=== PATIENT | female | born 1960 | race Caucasian/White ===

== ENCOUNTER 2023-05-12 01:52 | Outpatient (RCR) | payer BC, SELFPAY ==
[2023-04-14] MEDS: Normal Saline Flush 10 ML SYR IVP (09:33)
[2023-04-14 10:16] LABS: Abs Immature Grans 0.01 10^3/uL (0.0-0.06); Absolute Basophil Count 0.04 10^3/uL (0.0-0.2); Absolute Eosinophil Count 0.35 10^3/uL (0.0-0.7); Absolute Lymphocyte Count 1.09 10^3/uL (1.2-3.4); Absolute Monocyte Count 0.45 10^3/uL (0.1-0.8); Absolute Neutrophil Count 3.89 10^3/uL (1.2-6.7); Basophils % 0.7; HCT 33.1 % (36.0-46.0); HGB 10.6 g/dL (11.2-15.7); Immature Grans % 0.2; Lymphocytes % 18.7; MCH 29.6 pg (27.0-33.0); MCV 93 fL (80-95); MPV 9.3 fL (8.0-11.0); Monocytes % 7.7; Neutrophils % 66.7; Platelet Count 336 10^3/uL (130-400); RBC 3.58 10^6/uL (3.93-5.22); RDW 13.1 % (11.7-14.6); RDW-SD 44.6 fL; WBC 5.83 10^3/uL (4.4-10.8)
[2023-04-14 10:32] LABS: ALT 29 U/L (14-59); AST 29 U/L (15-37); Albumin 3.6 g/dL (3.4-5.0); Alkaline Phosphatase 100 U/L (46-116); Anion Gap 7.1 mmol/L (3-11); BUN 27 mg/dL (7-18); Bilirubin, Total 0.2 mg/dL (0.2-1.0); CO2 30.9 mmol/L (21.0-32.0); CREATININE 0.8 mg/dL (0.55-1.02); Calcium 8.7 mg/dL (8.5-10.1); Chloride 104 mmol/L (98-107); Estimated GFR 82.23 (mL/min/1.73m2); Glucose 109 mg/dL (74-106); Magnesium 1.9 mg/dL (1.8-2.4); Sodium 142 mmol/L (136-145); Total Protein 7.2 g/dL (6.4-8.2)
[2023-04-21] MEDS: Normal Saline Flush 10 ML SYR IVP (12:22)
[2023-04-21 12:40] LABS: Abs Immature Grans 0.03 10^3/uL (0.0-0.06); Absolute Basophil Count 0.04 10^3/uL (0.0-0.2); Absolute Eosinophil Count 0.22 10^3/uL (0.0-0.7); Absolute Lymphocyte Count 1.07 10^3/uL (1.2-3.4); Absolute Monocyte Count 0.52 10^3/uL (0.1-0.8); Absolute Neutrophil Count 4.75 10^3/uL (1.2-6.7); Basophils % 0.6; Eosinophils % 3.3; HCT 31.8 % (36.0-46.0); HGB 10.3 g/dL (11.2-15.7); Immature Grans % 0.5; Lymphocytes % 16.1; MCH 29.7 pg (27.0-33.0); MCHC 32.4 % (32.0-36.0); MCV 92 fL (80-95); MPV 9.1 fL (8.0-11.0); Monocytes % 7.8; Neutrophils % 71.7; Platelet Count 298 10^3/uL (130-400); RBC 3.47 10^6/uL (3.93-5.22); RDW-SD 43.5 fL; WBC 6.63 10^3/uL (4.4-10.8)
[2023-04-21 13:13] LABS: ALT 42 U/L (14-59); AST 38 U/L (15-37); Albumin 3.9 g/dL (3.4-5.0); Alkaline Phosphatase 88 U/L (46-116); Anion Gap 8.9 mmol/L (3-11); BUN 23 mg/dL (7-18); Bilirubin, Total 0.2 mg/dL (0.2-1.0); CO2 28.1 mmol/L (21.0-32.0); Calcium 8.8 mg/dL (8.5-10.1); Chloride 101 mmol/L (98-107); Estimated GFR 62.91 (mL/min/1.73m2); Glucose 100 mg/dL (74-106); Magnesium 1.7 mg/dL (1.8-2.4); Sodium 138 mmol/L (136-145); Total Protein 7.2 g/dL (6.4-8.2)
[2023-04-28] MEDS: Normal Saline Flush 10 ML SYR IVP (12:01)
[2023-04-28 12:09] LABS: Abs Immature Grans 0.02 10^3/uL (0.0-0.06); Absolute Basophil Count 0.04 10^3/uL (0.0-0.2); Absolute Eosinophil Count 0.11 10^3/uL (0.0-0.7); Absolute Lymphocyte Count 0.86 10^3/uL (1.2-3.4); Absolute Monocyte Count 0.49 10^3/uL (0.1-0.8); Absolute Neutrophil Count 4.53 10^3/uL (1.2-6.7); Basophils % 0.7; Eosinophils % 1.8; HCT 30.5 % (36.0-46.0); Immature Grans % 0.3; Lymphocytes % 14.2; MCH 30.2 pg (27.0-33.0); MCHC 32.8 % (32.0-36.0); MCV 92 fL (80-95); MPV 9.1 fL (8.0-11.0); Monocytes % 8.1; Neutrophils % 74.9; Platelet Count 288 10^3/uL (130-400); RBC 3.31 10^6/uL (3.93-5.22); RDW 13.1 % (11.7-14.6); RDW-SD 43.9 fL; WBC 6.05 10^3/uL (4.4-10.8)
[2023-04-28 12:44] LABS: ALT 30 U/L (14-59); AST 25 U/L (15-37); Albumin 3.6 g/dL (3.4-5.0); Alkaline Phosphatase 88 U/L (46-116); Anion Gap 6.3 mmol/L (3-11); BUN 24 mg/dL (7-18); Bilirubin, Total 0.2 mg/dL (0.2-1.0); CO2 29.7 mmol/L (21.0-32.0); CREATININE 1.1 mg/dL (0.55-1.02); Calcium 8.5 mg/dL (8.5-10.1); Chloride 103 mmol/L (98-107); Estimated GFR 56.11 (mL/min/1.73m2); Glucose 98 mg/dL (74-106); Magnesium 1.5 mg/dL (1.8-2.4); Potassium 4.1 mmol/L (3.5-5.1); Sodium 139 mmol/L (136-145); Total Protein 6.8 g/dL (6.4-8.2)
[2023-05-05 13:14] LABS: Abs Immature Grans 0.02 10^3/uL (0.0-0.06); Absolute Basophil Count 0.03 10^3/uL (0.0-0.2); Absolute Eosinophil Count 0.06 10^3/uL (0.0-0.7); Absolute Lymphocyte Count 0.59 10^3/uL (1.2-3.4); Absolute Monocyte Count 0.43 10^3/uL (0.1-0.8); Absolute Neutrophil Count 5.57 10^3/uL (1.2-6.7); Basophils % 0.4; Eosinophils % 0.9; HCT 29.7 % (36.0-46.0); HGB 9.7 g/dL (11.2-15.7); Immature Grans % 0.3; Lymphocytes % 8.8; MCH 29.7 pg (27.0-33.0); MCHC 32.7 % (32.0-36.0); MCV 91 fL (80-95); Monocytes % 6.4; Neutrophils % 83.2; Platelet Count 275 10^3/uL (130-400); RBC 3.27 10^6/uL (3.93-5.22); RDW 13.2 % (11.7-14.6); RDW-SD 43.5 fL
[2023-05-05 13:28] LABS: ALT 26 U/L (14-59); AST 21 U/L (15-37); Albumin 3.7 g/dL (3.4-5.0); Alkaline Phosphatase 90 U/L (46-116); Anion Gap 7.5 mmol/L (3-11); BUN 20 mg/dL (7-18); Bilirubin, Total 0.2 mg/dL (0.2-1.0); CO2 29.5 mmol/L (21.0-32.0); Calcium 8.5 mg/dL (8.5-10.1); Chloride 100 mmol/L (98-107); Estimated GFR 62.91 (mL/min/1.73m2); Glucose 87 mg/dL (74-106); Magnesium 1.6 mg/dL (1.8-2.4); Potassium 4.1 mmol/L (3.5-5.1); Sodium 137 mmol/L (136-145)
[2023-05-05] MEDS: Normal Saline Flush 10 ML SYR IVP (13:51)
[2023-05-12] MEDS: Normal Saline Flush 10 ML SYR IVP (12:47)
[2023-05-12 12:57] LABS: Abs Immature Grans 0.03 10^3/uL (0.0-0.06); Absolute Basophil Count 0.03 10^3/uL (0.0-0.2); Absolute Eosinophil Count 0.03 10^3/uL (0.0-0.7); Absolute Lymphocyte Count 0.38 10^3/uL (1.2-3.4); Absolute Monocyte Count 0.45 10^3/uL (0.1-0.8); Absolute Neutrophil Count 5.89 10^3/uL (1.2-6.7); Basophils % 0.4; Eosinophils % 0.4; HCT 30.4 % (36.0-46.0); Immature Grans % 0.4; Lymphocytes % 5.6; MCH 29.8 pg (27.0-33.0); MCHC 32.9 % (32.0-36.0); MCV 91 fL (80-95); MPV 8.6 fL (8.0-11.0); Monocytes % 6.6; Neutrophils % 86.6; Platelet Count 210 10^3/uL (130-400); RBC 3.36 10^6/uL (3.93-5.22); RDW 13.2 % (11.7-14.6); RDW-SD 43.2 fL; WBC 6.81 10^3/uL (4.4-10.8)
[2023-05-12 13:52] LABS: ALT 19 U/L (14-59); AST 19 U/L (15-37); Albumin 3.7 g/dL (3.4-5.0); Alkaline Phosphatase 89 U/L (46-116); Anion Gap 9.9 mmol/L (3-11); BUN 25 mg/dL (7-18); Bilirubin, Total 0.3 mg/dL (0.2-1.0); CO2 29.1 mmol/L (21.0-32.0); CREATININE 1.4 mg/dL (0.55-1.02); Calcium 8.6 mg/dL (8.5-10.1); Chloride 94 mmol/L (98-107); Estimated GFR 42.01 (mL/min/1.73m2); Glucose 134 mg/dL (74-106); Magnesium 1.7 mg/dL (1.8-2.4); Potassium 3.9 mmol/L (3.5-5.1); Sodium 133 mmol/L (136-145); Total Protein 7.2 g/dL (6.4-8.2)
== END 2023-05-12 23:59 | disposition home or self-care (01) ==
LOC: INF 01:52
PROVIDERS: Visit Provider Internal Medicine Hematology & Oncology
DX: C32.9 Malignant neoplasm of larynx, unspecified (principal); Z45.2 Encounter for adjustment and management of vascular access device
CPT/HCPCS: 36415; 36591; 80053; 96523; 83735; 85025

== ENCOUNTER 2023-06-09 02:07 | Outpatient (RCR) | payer BC, SELFPAY ==
[2023-05-19 11:57] LABS: Abs Immature Grans 0.03 10^3/uL (0.0-0.06); Absolute Basophil Count 0.01 10^3/uL (0.0-0.2); Absolute Eosinophil Count 0.02 10^3/uL (0.0-0.7); Absolute Lymphocyte Count 0.28 10^3/uL (1.2-3.4); Absolute Monocyte Count 0.36 10^3/uL (0.1-0.8); Absolute Neutrophil Count 4.61 10^3/uL (1.2-6.7); Basophils % 0.2; Eosinophils % 0.4; HCT 26.3 % (36.0-46.0); HGB 8.8 g/dL (11.2-15.7); Immature Grans % 0.6; Lymphocytes % 5.3; MCH 30.3 pg (27.0-33.0); MCHC 33.5 % (32.0-36.0); MCV 91 fL (80-95); MPV 8.6 fL (8.0-11.0); Monocytes % 6.8; Neutrophils % 86.7; Platelet Count 179 10^3/uL (130-400); RDW 13.6 % (11.7-14.6); RDW-SD 44.5 fL; WBC 5.31 10^3/uL (4.4-10.8)
[2023-05-19 12:13] LABS: ALT 14 U/L (14-59); AST 16 U/L (15-37); Albumin 3.4 g/dL (3.4-5.0); Alkaline Phosphatase 88 U/L (46-116); Anion Gap 7.2 mmol/L (3-11); BUN 28 mg/dL (7-18); Bilirubin, Total 0.2 mg/dL (0.2-1.0); CO2 30.8 mmol/L (21.0-32.0); CREATININE 1.2 mg/dL (0.55-1.02); Calcium 8.7 mg/dL (8.5-10.1); Chloride 95 mmol/L (98-107); Estimated GFR 50.55 (mL/min/1.73m2); Glucose 131 mg/dL (74-106); Magnesium 1.3 mg/dL (1.8-2.4); Sodium 133 mmol/L (136-145); Total Protein 6.8 g/dL (6.4-8.2)
[2023-05-19] MEDS: Heparin 500 UNITS/5 ML SYRINGE IV (14:37)
[2023-05-19] MEDS: Normal Saline Flush 10 ML SYR IVP (14:37)
[2023-05-26 09:51] LABS: Abs Immature Grans 0.01 10^3/uL (0.0-0.06); Absolute Basophil Count 0.02 10^3/uL (0.0-0.2); Absolute Eosinophil Count 0.01 10^3/uL (0.0-0.7); Absolute Lymphocyte Count 0.25 10^3/uL (1.2-3.4); Absolute Monocyte Count 0.34 10^3/uL (0.1-0.8); Absolute Neutrophil Count 2.64 10^3/uL (1.2-6.7); Basophils % 0.6; Eosinophils % 0.3; HGB 8.7 g/dL (11.2-15.7); Immature Grans % 0.3; Lymphocytes % 7.6; MCH 30.7 pg (27.0-33.0); MCHC 33.5 % (32.0-36.0); MCV 92 fL (80-95); Monocytes % 10.4; Neutrophils % 80.8; Platelet Count 208 10^3/uL (130-400); RBC 2.83 10^6/uL (3.93-5.22); RDW 14.3 % (11.7-14.6); RDW-SD 45.8 fL; WBC 3.27 10^3/uL (4.4-10.8)
[2023-05-26] MEDS: Normal Saline Flush 10 ML SYR IVP (09:58)
[2023-05-26] MEDS: Heparin 500 UNITS/5 ML SYRINGE IV (09:58)
[2023-05-26 10:29] LABS: ALT 13 U/L (14-59); AST 17 U/L (15-37); Albumin 3.3 g/dL (3.4-5.0); Alkaline Phosphatase 87 U/L (46-116); BUN 25 mg/dL (7-18); Bilirubin, Total 0.3 mg/dL (0.2-1.0); CREATININE 1.3 mg/dL (0.55-1.02); Calcium 8.9 mg/dL (8.5-10.1); Chloride 98 mmol/L (98-107); Estimated GFR 45.92 (mL/min/1.73m2); Glucose 101 mg/dL (74-106); Magnesium 1.7 mg/dL (1.8-2.4); Potassium 3.9 mmol/L (3.5-5.1); Sodium 135 mmol/L (136-145)
[2023-06-09] MEDS: Heparin 500 UNITS/5 ML SYRINGE IV (11:20)
[2023-06-09] MEDS: Normal Saline Flush 10 ML SYR IVP (11:20)
[2023-06-09 11:40] LABS: Abs Immature Grans 0.01 10^3/uL (0.0-0.06); Absolute Basophil Count 0.02 10^3/uL (0.0-0.2); Absolute Eosinophil Count 0.01 10^3/uL (0.0-0.7); Absolute Lymphocyte Count 0.29 10^3/uL (1.2-3.4); Absolute Monocyte Count 0.33 10^3/uL (0.1-0.8); Absolute Neutrophil Count 2.75 10^3/uL (1.2-6.7); Basophils % 0.6; Eosinophils % 0.3; HGB 8.7 g/dL (11.2-15.7); Immature Grans % 0.3; Lymphocytes % 8.5; MCH 31.6 pg (27.0-33.0); MCHC 33.5 % (32.0-36.0); MCV 95 fL (80-95); MPV 8.9 fL (8.0-11.0); Monocytes % 9.7; Neutrophils % 80.6; Platelet Count 260 10^3/uL (130-400); RBC 2.75 10^6/uL (3.93-5.22); RDW 16.3 % (11.7-14.6); RDW-SD 54.5 fL; WBC 3.41 10^3/uL (4.4-10.8)
[2023-06-09 11:59] LABS: ALT 16 U/L (14-59); AST 18 U/L (15-37); Albumin 3.5 g/dL (3.4-5.0); Alkaline Phosphatase 89 U/L (46-116); Anion Gap 5.8 mmol/L (3-11); BUN 38 mg/dL (7-18); Bilirubin, Total 0.4 mg/dL (0.2-1.0); CO2 32.2 mmol/L (21.0-32.0); CREATININE 1.5 mg/dL (0.55-1.02); Chloride 99 mmol/L (98-107); Estimated GFR 38.67 (mL/min/1.73m2); Glucose 91 mg/dL (74-106); Sodium 137 mmol/L (136-145)
== END 2023-06-12 23:59 | disposition home or self-care (01) ==
LOC: INF 02:07
PROVIDERS: Visit Provider Internal Medicine Hematology & Oncology
DX: C32.9 Malignant neoplasm of larynx, unspecified (principal); Z45.2 Encounter for adjustment and management of vascular access device
CPT/HCPCS: 36591; 80053; 83735; 85025

== ENCOUNTER → 2023-07-30 03:25 | Outpatient (CLI) | payer BC, SELFPAY ==
--- NOTE | 2023-07-30 | DI.RAD_ITS ---
Exam(s) RF MODIFIED SPEECH BA SWALLOW TECHNIQUE: Modified barium swallow was performed in conjunction with speech pathology. CONTRAST MATERIAL: Oral barium Oral water soluble contrast was administered. COMPARISON: No exams were available for comparison FINDINGS: Note that this is not a dedicated esophagram, distal esophagus not evaluated. There is no evidence of aspiration or penetration of thin liquids, barium pudding and barium coated c ookie. Speech pathology report to follow. IMPRESSION: No evidence of aspiration or penetration. RADIATION DOSE DELIVERED: esther Sosa=8.79 mGy
[2023-07-30] MEDS: Barium Sulfate Oral Paste 40% W/V 230 ML TUBE 60 ML PO (15:15)
[2023-07-30] MEDS: Barium Sulfate 81% w/w for Oral Suspension 148 GM BTL 90 GM PO (15:18)
[2023-07-30] MEDS: Barium Sulfate 40% W/V 240 ML BTL 60 ML PO (15:20)
--- NOTE | 2023-07-30 15:41 | ST.MBS ---
Date of Service Date of service: 07/30/23 Time of Service: 15:41 Modified Barium Swallow Study Findings: Videofluoroscopic Swallowing Evaluation / Modified Barium Swallow Study (VFSE/MBSS) Speech Language Pathology Report Patient referred for MBSS from Dr Valencia given recent completion of chemo & radiation therapy with feeding tube use and presence of tracheostomy. 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 A protective tracheostomy was placed prior to treatment as a precaution, which remains in place at this time. She currently tolerates a capped trach. She has not been using her tube feed for nutrition or hydration and has reportedly tolerated a soft solid and thin liquid diet in recent weeks without s/sx aspiration. SUBJECTIVE: Yanci tolerates a soft solids diet (fully edentulous) at this time without complaint. She denies sensation of residue, or s/sx aspiration. OBJECTIVE: Videofluoroscopic Swallow Evaluation (VFSE/MBSS) was conducted in the lateral projection by Speech-Language Pathologist, in collaboration with Radiologist, to evaluate oropharyngeal swallow function. Anatomic view under fluoroscopy: Presence of tracheostomy tube PO barium contrast trials: Oral barium water soluble contrast was administered as follows: IDDSI Level 0 Varibar thin liquid (40% w/v) IDDSI Level 4 Varibar pudding/pureed/extremely thick (40% w/v) IDDSI Level 7 Regular Solid: 1/2 cortez cracker coated in 3 mL Varibar pudding; 13 mm barium tablet taken with Level 0 Varibar thin liquid. PHYSIOLOGIC FINDINGS Oral Phase 1 Lip Closure: 1-Interlabial escape; no progression to anterior lip 2 Tongue Control: 0- Cohesive bolus between tongue to palatal seal 3 Bolus Preparation/Mastication: 2- Disorganized chewing/mashing with solid pieces of bolus unchewed 4 Bolus Transport/Lingual Motion: 0- Brisk tongue motion 5 Oral residue: 1- Trace residue lining oral structures Location: tongue 6 Initiation of pharyngeal swallow:? 2- Bolus head at posterior laryngeal surface of epiglottis Pharyngeal Phase 7 Velar Elevation: 0- No bolus between soft palate and pharyngeal wall 8 Laryngeal Elevation:? 1- Partial superior movement of thyroid cartilage with partial approximation of arytenoids to epiglottic petiole 9 Anterior Hyoid Excursion: 0- Complete anterior movement 10 Epiglottic Movement:? 0- Complete inversion 11 Laryngeal Vestibule Closure: 0- Complete; no air/contrast in laryngeal vestibule Penetration occurs prior to initial swallow onset from current bolus. 12 Pharyngeal Stripping Wave:? 0- Present; complete 13 Pharyngeal Contraction: DNT; lack of AP view 14 PES/UES Opening:? 1- Partial distension and partial duration; partial obstruction of flow noting mild cricopharyngeal hypertrophy but without obstruction, no pyriform residue. 15 Tongue Base Retraction: 1- Trace column of contrast between tongue base and posterior pharyngeal wall 16 Pharyngeal residue:? 1- Trace residue within or on pharyngeal structures Location: Tongue base, Valleculae [place] Pharyngeal Residue Severity Rating Scale (YPRS) (Shelby, et al, 2015) Vallecula Residue Severity II Trace 1-5% Trace coating of the mucosa Pyriform Sinus Residue Severity I None 0% No residue Esophageal Phase 17 Esophageal Clearance Upright Position: DNT; lack of AP view NOTE: This study was performed for interpretation only of the oropharyngeal and pharyngoesophageal domains of swallowing. It is not intended to diagnose any other radiologic abnormalities or substitute for a formal esophagram study. Overall 8-Point Penetration-Aspiration Scale (PAS) (Brucek, et al, 1996) 1 - No material enters the airway. (puree, solid trials) 2 - Material enters the airway, remains above the vocal folds, and is ejected? from the airway. (thin liquid trials) Clinical Indicator(s) of Prandial/Postprandial Aspiration: N/A - no aspiration DIGEST Scale Rating (O'Cuco, et al, 1999) DIGEST Score: Safety Grade 0 / Efficiency Grade 0 = 0 - Overall WFL Pharyngeal Function (0=No Impairment, 1=Mild, 2=Moderate, 3=Severe, 4=Life Threatening) The Dynamic Imaging Grade of Swallowing Toxicity (DIGEST) Score represents a set of structured criteria primarily validated for head and neck cancer patients to grade the interaction of safety, efficiency, and overall impairment of the pharyngeal swallow, meant to assist in prioritization of targets for dysphagia treatment planning. (Yang, et al. Cancer. 2017;123(1):62-70) Note: - Above score represents swallowing events without application of compensatory techniques Trialed Compensatory Swallow Strategies & Outcome: Bolus Modifications -Delivery/Alternating Consistencies - Wash with thin liquid successful to resolve barium tablet stasis in distal esophagus Dysphagia Outcome and Severity Scale (ADAIR) LEVEL 6 - Full PO: normal diet - Within functional limits/modified independence IMPRESSIONS: WFL pharyngeal phase even with presence of tracheostomy - oral phase impairments appear to be primarily due to edentulousness (teeth all pulled prior to radiation). Swallow safety is preserved; swallow efficiency is preserved. Patient anatomy appears consistent with mild CP hypertrophy (asymptomatic), and noting stasis in distal esophagus of 13mm barium tablet, resolves with liquid wash. Patient appears to be at low risk for potential aspiration PNA, pulmonary compromise and low for malnutrition, low for dehydration. Diet modification is indicated only due to edentulousness. Swallow prognosis is good given high level off function, and given expectation that swallow function may improve after tracheostomy tube is removed. Remains at risk for late effects of radiation fibrosis. PLAN: Encouraged patient to continue with pharyngocise HEP. No further [employer] REPAIR IN[employer]CTOR services needed at this time, patient may seek [employer] REPAIR INSTRUCTOR referral in the future if function changes. Diet recommendation: IDDSI Level 6-Soft & Bite-Sized Solids 0-Thin Liquids Please see further details at [email or web address] Diet texture modification is per patient's preference; please adjust diet textures at patient's discretion & collaboration with care team. Risk Management: Behavioral reflux precautions, including upright position during + 90 mins after meals. Small sips, approx 10 mL Alternate solids/liquids as able Control risk factors for aspiration pneumonia via (a) thorough oral hygiene & (b) maintaining physical mobility as tolerated Follow-up exam: PRN only Thank you for allowing me to take part in this patient's care. Please feel free to contact me with any questions/concerns. Jenny Ferrara MS, [facility]-[employer] REPAIR INSTRUCTOR Speech Language Pathologist [phone] Coding CPT Codes MOTION FLUOROSCOPY/SWALLOW - [id number] ([id number])
== END ==
PROVIDERS: Visit Provider Internal Medicine Hematology & Oncology
DX: Z93.0 Tracheostomy status (principal)
CPT/HCPCS: 92526; 92611; 74221

== ENCOUNTER → 2024-04-13 02:15 | Outpatient (CLI) | payer MEDICARE, SELFPAY ==
--- OUTSIDE RECORDS SUMMARY | 2024-04-13 02:17 | XMS_ITS | Patient Health Record ---
Author Name Unknown Organization [facility] Corporate Address [address] [place] [address] Care Team Providers Care Director Of Mobile Marketing Name Role Phone KAROLYN WHITE Unavailable [phone] Reason For Referral No Information Encounters Encounter Location Date Provider Diagnosis [facility] located [facility] [address] [place] [address] 11/24/2023 KAROLYN WHITE Other specified counseling Z71.89 and Neoplasm of uncertain behavior of skin D48.5 Assessments Encounter Date Diagnosis (ICD Code) Assessment Notes Treatment Notes Treatment Clinical Notes 11/24/2023 Other specified counseling (ICD-10 - Z71.89) 11/24/2023 Neoplasm of uncertain behavior of skin (ICD-10 - D48.5) Plan Of Treatment No Information Insurance Providers Payer Name Payer Address Payer Phone Subscriber Number Group Number Insured Name Patient Relationship to Insured Coverage Start Date Coverage End Date [facility] [address] [place] [address] [id number] Yanci Ratliff Self - patient is the insured
[2024-04-13 13:54] LABS: Abs Immature Grans 0.01 10^3/uL (0.0-0.06); Absolute Basophil Count 0.01 10^3/uL (0.0-0.2); Absolute Eosinophil Count 0.01 10^3/uL (0.0-0.7); Absolute Lymphocyte Count 0.48 10^3/uL (1.2-3.4); Absolute Monocyte Count 0.34 10^3/uL (0.1-0.8); Absolute Neutrophil Count 3.01 10^3/uL (1.2-6.7); Basophils % 0.3 %; Eosinophils % 0.3 %; HGB 9.8 g/dL (11.2-15.7); Immature Grans % 0.3 %; Lymphocytes % 12.4 %; MCH 28.2 pg (27.0-33.0); MCHC 31.6 % (32.0-36.0); MCV 89 fL (80-95); MPV 8.1 fL (8.0-11.0); Monocytes % 8.8 %; Neutrophils % 77.9 %; Platelet Count 313 10^3/uL (130-400); RBC 3.47 10^6/uL (3.93-5.22); RDW 14.2 % (11.7-14.6); RDW-SD 46.5 fL; WBC 3.86 10^3/uL (4.4-10.8)
[2024-04-13 14:18] LABS: ALT 21 U/L (14-59); AST 25 U/L (15-37); Albumin 3.5 g/dL (3.4-5.0); Alkaline Phosphatase 91 U/L (46-116); Anion Gap 8.3 mmol/L (3-11); BUN 16 mg/dL (7-18); Bilirubin, Total 0.14 mg/dL (0.2-1.0); CO2 30.7 mmol/L (21.0-32.0); CREATININE 1.3 mg/dL (0.55-1.02); Calcium 9.1 mg/dL (8.5-10.1); Chloride 101 mmol/L (98-107); Estimated GFR 45.63 (mL/min/1.73m2); Glucose 115 mg/dL (74-106); Potassium 3.9 mmol/L (3.5-5.1); Sodium 140 mmol/L (136-145); Total Protein 7.9 g/dL (6.4-8.2)
[2024-04-13] MEDS: Normal Saline - Diluent 50 ML VIAL IJ (14:43)
[2024-04-13] MEDS: Omnipaque 350 MG/ML 100 ML BTL IJ (14:44)
[2024-04-13] MEDS: Normal Saline Flush 10 ML SYR IVP (14:46)
--- NOTE | 2024-04-13 15:03 | DI.CT_ITS ---
Exam(s) CT NECK W EXAM: CT NECK W CLINICAL HISTORY: S/P RADIOTHERAPY Z92.3 LARYNGEAL CANCER, FULLNESS SWALLOWING DIFFICULT. TECHNIQUE: Imaging Protocol: Axial computed tomography images with coronal and sagittal reformatted images were created and reviewed. CONTRAST MATERIAL: Intravenous: Omnipaque 350 Contrast volume:100mL COMPARISON: No exams were available for comparison FINDINGS: Orbits and orbital soft tissues: Within normal limits. Visualized paranasal sinuses: Within normal limits. Nasopharynx: Within normal limits. Pharynx : There is mild thickening of the wall of the supraglottic airway just below the level of th e hyoid bone. It does appear concentric. And there is resultant mild narrowing present. Larynx: Within normal limits. Retropharyngeal space: Within normal limits. Parotids/submandibular: Within normal limits. Lymphadenopathy: There is scattered lymph nodes seen along the level one to level three all measuring less than 8 mm in short axis diameter which are physiologic in nature. Trachea: Within normal limits. Lung apices: There is biapical scarring. No pulmonary nodules are seen in the lung apices. Emphyse matous changes are seen in the lung apices. Bones: Within normal limits for the patient's age. Carotids/Jugular: Within normal limits. Soft tissues: Within normal limits. IMPRESSION: Mild apparent thickening of the wall of the supraglottic airway with mild narrowing present. No infl ammatory changes or findings to suggest an abscess. No definite mass is appreciated. Further evalua tion may be obtained with a swallowing study with speech therapy. Direct visualization may also be c onsidered. RADIATION DOSE DELIVERED: 278.9mGy.cm Total DLP 278.9mGy.cm Total DLP DATA REPOSITORY: All CT scans at this facility are submitted to the National Radiology Data Registry (NRDR) Dose Index Registry (DIR) with the [employer] (ACR). RADIATION OPTIMIZATION: All CT scans at this facility use at least one of these dose optimization te chniques: automated exposure control; mA and/or kV adjustment per patient size (includes targeted exa ms where dose is matched to clinical indication); or iterative reconstruction.
== END ==
PROVIDERS: Visit Provider Radiology Radiation Oncology
DX: Z92.3 Personal history of irradiation (principal)
CPT/HCPCS: 36415; 70491; 80053; 82565; 85025; J3490

== ENCOUNTER 2024-06-17 16:02 | Outpatient (CLI) | payer MEDICARE, SELFPAY ==
[2024-06-17 17:08] LABS: Abs Immature Grans 0.01 10^3/uL (0.0-0.06); HCT 32.9 % (36.0-46.0); HGB 10.5 g/dL (11.2-15.7); MCH 28.8 pg (27.0-33.0); MCHC 31.9 % (32.0-36.0); MCV 90 fL (80-95); MPV 8.9 fL (8.0-11.0); Platelet Count 256 10^3/uL (130-400); RBC 3.64 10^6/uL (3.93-5.22); RDW 14.6 % (11.7-14.6); RDW-SD 49.1 fL; Reticulocyte 0.7 % (0.5-2.4); WBC 4.16 10^3/uL (4.4-10.8)
[2024-06-17 17:22] LABS: Absolute Neutrophil Count 2.87 10^3/uL (1.2-6.7)
[2024-06-17 17:23] LABS: Absolute Lymphocyte Count 1.08 10^3/uL (1.2-3.4); Absolute Monocyte Count 0.21 10^3/uL (0.1-0.8); Atypical Lymphocytes % 1 %; Diff Comment Manual Differential; RBC Morphology Normal
[2024-06-17 18:19] LABS: ALT 22 U/L (14-59); AST 20 U/L (15-37); Albumin 4.2 g/dL (3.4-5.0); Alkaline Phosphatase 81 U/L (46-116); Anion Gap 7.7 mmol/L (3-11); BUN 41 mg/dL (7-18); Bilirubin, Total 0.21 mg/dL (0.2-1.0); CO2 32.3 mmol/L (21.0-32.0); CREATININE 1.5 mg/dL (0.55-1.02); Calcium 9.1 mg/dL (8.5-10.1); Chloride 97 mmol/L (98-107); Estimated GFR 38.43 (mL/min/1.73m2); Ferritin 21 ng/mL (8-252); Glucose 88 mg/dL (74-106); Potassium 3.8 mmol/L (3.5-5.1); Sodium 137 mmol/L (136-145); Total Protein 7.4 g/dL (6.4-8.2); Vitamin B12 444 pg/mL (193-986)
[2024-06-17 18:36] LABS: LDH 179 U/L (81-234)
[2024-06-18 18:57] LABS: HBs Antibody, Quant <3.1 mIU/mL (See Note); Hepatitis B Surface Ab Negative (See Note)
[2024-06-18 19:09] LABS: Hepatitis B Surface Ag Negative (Negative)
[2024-06-18 19:40] LABS: HIV-1/2 Ag & Ab Screen Negative (Negative)
[2024-06-18 19:42] LABS: Hepatitis C Ab w Rflx HCV PCR Negative (Negative)
[2024-06-18 19:44] LABS: Hep B Core Antibody Negative (Negative)
[2024-06-21 17:58] LABS: Erythropoietin 7.2 mIU/mL (2.6 - 18.5)
== END 2024-06-17 16:03 | disposition home or self-care (01) ==
LOC: LBO 16:02
PROVIDERS: Visit Provider Internal Medicine Hematology & Oncology
DX: D64.9 Anemia, unspecified (principal)
CPT/HCPCS: 36415; 80053; 82668; 86704; 86706; 86803; 87340; 87389; 82607; 82728; 82746; 83615; 85025; 85045

== ENCOUNTER 2024-06-30 02:19 | Outpatient (CLI) | payer MEDICARE, SELFPAY ==
--- NOTE | 2024-06-30 14:30 | DI.US_ITS ---
APPROVED REPORT EXAM: Comprehensive 2D, Doppler, and color-flow Echocardiogram Patient Location: Out-Patient Adult Specialist: Giselle Tinsley RDCS (AE) Indications: Echo before initiation of chemo Other Information Study Quality: Good Conclusion Normal left ventricular wall thickness and chamber size. Ejection fraction is 58%. Wall motion is n ormal Normal right ventricular size and function Both atria are normal in size There is no structural or hemodynamically significant valvular disease Wall motion Left Ventricle The left ventricle is normal size. The left ventricular systolic function is normal. The left ventric ular ejection fraction is within the normal range. GLS is 19.5% There is normal left ventricular wall thickness. There is normal LV segmental wall motion. There is no ventricular septal defect visualize d. LVEF is 58%. Right Ventricle The right ventricle is normal size. The right ventricular systolic function is normal. Atria The left atrium size is normal. The right atrium size is normal. The interatrial septum is intact wit h no evidence for an atrial septal defect. Aortic Valve The aortic valve is normal in structure. Aortic valve is trileaflet. There is no aortic valvular sten osis. No aortic regurgitation is present. Mitral Valve The mitral valve is normal in structure. No evidence of mitral valve stenosis. Trace mitral regurgita tion. Tricuspid Valve The tricuspid valve is normal in structure. There is no tricuspid valve stenosis. Trace tricuspid reg urgitation. Unable to assess PA pressure. Pulmonic Valve The pulmonary valve is normal in structure. There is no pulmonic valvular stenosis. There is no pulmo whit valvular regurgitation. Great Vessels The aortic root is normal in size. The ascending aorta is normal in size. Aortic arch is normal in ca liber. IVC is normal in size and collapses >50% with inspiration. Pericardium There is no pericardial effusion. 2D Dimensions IVSD d PLAX 0.93 cm F: 0.6-1.0 Ao Root d 3.03 cm F: 2.7 - 3.3 LVPW d PLAX 0.90 cm F: 0.6 - 1.0 Ao Asc Diam d 2.96 cm F: 2.3 - 3.1 LVID d PLAX 4.10 cm F: 3.8 - 5.2 LVDs 2.89 cm F: 2.2 - 3.5 LV EF Teichholz 56.7 % FS 29.33 % LV EDV (Teich) 73.8 mL LV ESV (Teich) 32.0 mL M-Mode TAPSE 2.19 cm (M/F) >1.7 Auto EF LV EDV A4C 91.2 mL LV EDV A2C 97.4 mL LV EDV BP 95.5 mL LV ESV A4C 42.9 mL LV ESV A2C 43.2 mL LV ESV BP 42.8 mL LVEF(%) A4C 53.0 % LVEF(%) A2C 55.6 % LVEF(%) BP 55.2 % LV SV A4C 48.3 ml LV SV A2C 54.2 ml LV SV BP 52.7 ml LV CO A4C 3.0 L/min LV CO A2C 3.4 L/min LV CO BP 3.2 L/min HR A4C 62.29 BPM HR A2C 62.29 BPM LV EDV Index (BP) LV Strain Long Pk Overal Avg (s) 19.47 LA Volume LA Length A4C 4.0 cm LA Length A2C 5.3 cm LA Area A4C s 13.23 cm2 LA Area A2C s 19.23 cm2 LA Vol A4C A-L 37.51 mL LA Vol A2C A-L 58.87 mL LA Vol Biplane A-L 54.5 mL LA Vol/BSA A4C A-L LA Vol/BSA A2C A-L LA Vol/BSA BP A-L 37.1 mL/m2 LA Vol A4C MOD 33.8 mL LA Vol A2C MOD 53.3 mL LA Vol BP MOD 49.2 mL RA Volume RA Area A4C 10.9 cm2 RA ESV A4C (A-L) 23.9mL RA Vol/BSA A4C A-L RA Length A4C 4.2 cm RA ESV A4C (MOD) 22.7mL LV Diastology MV E' medial 0.087 (>0.07 m/s) MV E Vmax 0.73 (0.4-1.3 m/s) MV E/E' MED 8.38 (<14) MV A Vmax 0.65 (0.4-1.3 m/s) MV E' lateral 0.108 (>0.1 m/s) E/A Ratio 1.1 MV E/E' LAT 6.79 (<14) MV E' Average 0.098 m/s MV E/E'(average) 7.50 Aortic Valve AoV Vmax 1.36 m/s LVOT Vmax 0.98 m/s AoV Peak Grad 7.4 mmHg LVOT Peak Grad 3.9 mmHg AoV Area (Vmax) 2.25 cm2 LVOT VTI 0.202 m AoV VTI 0.292 m LVOT Mean Grad 2.2 mmHg AoV Mean Bright. 0.96 m/s LVOT SV 62.78 mL AoV Mean Grad 4.2 mmHg LVOT Diam s 1.95 cm AoV Area (VTI) 2.15 cm2 AV Regurg Peak Gr. 7.38 mmHg Velocity Ratio 0.72 Mitral Valve MV DT 206 (160-240 msec) MV Vmax TIPS 0.82 m/s MV Mean Grad 0.9 (<2mmHg) MV VTI 0.206 m Pulmonary Valve PV Vmax 0.80 (0.5-1.5 m/s) RVOT Vmax 0.59 m/s PV Peak Grad 2.6 mmHg RVOT Peak Gr. 1.4 mmHg PV Mean Bright 0.63 m/s RVOT VTI 0.131 m PV Mean Grad 1.7 mmHg RVOT Mean Gr. 0.7 mmHg Tricuspid Valve RA Pressure 3.00 mmHg TV S' 0.16 m/s
== END 2024-06-30 02:39 ==
LOC: DI 02:19
PROVIDERS: Visit Provider Internal Medicine Hematology & Oncology
DX: Z01.818 Encounter for other preprocedural examination (principal); C85.80 Other specified types of non-Hodgkin lymphoma, unspecified site
CPT/HCPCS: 93306